=== PATIENT | female | born 1945 | race African-American/Black ===

== ENCOUNTER 2025-02-01 00:25 | Inpatient (IN) | payer MEDICARE, OTHER ==
[~2025-02-01] VITALS: Ht 162.6 cm; Wt 79.4 kg
[~2025-02-01 00:25] MED LIST: ASPI-1169 PO; ATOR20TA PO; CALC-903 PO; CHOL200074 PO; DOCU100C36 PO; ENAL20TA18 PO; GABA-532 PO; GALA12TA15 PO; MEMA10TA PO; MULT-754 PO
[2025-02-01 01:02] LABS: BASOPHILS # (AUTO) 0.1 K/uL (0.0-0.2); BASOPHILS % (AUTO) 0.9 % (0.0-2.0); EOSINOPHILS # (AUTO) 0.1 K/uL (0.0-0.7); EOSINOPHILS % (AUTO) 1.1 % (0.0-6.0); HEMATOCRIT 35 % (33-45); HEMOGLOBIN 11.4 g/dL (11.5-14.8); LYMPHOCYTES # (AUTO) 2.3 K/uL (0.8-4.8); LYMPHOCYTES % (AUTO) 30.7 % (20.0-44.0); MEAN CORPUSCULAR HEMOGLOBIN 28 PG (26.0-33.0); MEAN CORPUSCULAR HGB CONC 33 g/dl (31.0-36.0); MEAN CORPUSCULAR VOLUME 86 fL (82-100); MONOCYTES # (AUTO) 0.7 K/uL (0.1-1.30); MONOCYTES % (AUTO) 8.9 % (2.0-12.0); NEUTROPHILS # (AUTO) 4.4 K/uL (1.8-8.9); NEUTROPHILS % (AUTO) 58.4 % (43.0-81.0); PLATELET COUNT (AUTO) 196 K/uL (150-450); RED BLOOD CELL COUNT(AUTO) 4.06 MIL/uL (4.0-5.2); RED CELL DISTRIBUTION WIDTH 14.7 % (11.5-15.0); WHITE BLOOD COUNT (AUTO) 7.5 K/uL (4.3-11.0)
[2025-02-01 01:13] LABS: CALCIUM, SERUM 8.7 mg/dL (8.5-10.1); CARBON DIOXIDE 30 mmol/L (21-32); CHLORIDE 111 mmol/L (98-107); CREATININE 0.8 mg/dL (0.6-1.3); GLUCOSE 109 mg/dL (74-106); SODIUM SERUM 146 mmol/L (136-145); UREA NITROGEN, BLOOD 10 mg/dL (7-18)
[2025-02-01 01:27] LABS: ACETAMINOPHEN < 10 ug/ml (10-30); ALANINE AMINOTRANSFERASE 11 U/L (12-78); ALBUMIN 2.7 g/dL (3.4-5.0); ALKALINE PHOSPHATASE 77 U/L (46-116); ASPARTATE AMINOTRANSFERASE 12 U/L (15-37); BILIRUBIN,DIRECT 0.1 mg/dL (0.0-0.2); BILIRUBIN,TOTAL 0.2 mg/dL (0.2-1.0)
[2025-02-01 01:29] LABS: ALCOHOL, BLOOD < 3 mg/dL (0-10); SALICYLATE 0.8 mg/dL (2.8-20.0)
[2025-02-01 02:22] LABS: APPEARANCE,URINE CLEAR (CLEAR); BILIRUBIN,URINE NEGATIVE (NEGATIVE); BLOOD, URINE NEGATIVE Ery/uL (NEGATIVE); COLOR,URINE YELLOW (YELLOW); KETONES,URINE TRACE mg/dL (NEGATIVE); LEUKOCYTE ESTERASE ,URINE NEGATIVE (NEGATIVE); NITRITE, URINE NEGATIVE (NEGATIVE); PROTEIN,URINE TRACE mg/dl (NEGATIVE); UGLUCOSE NEGATIVE (NEGATIVE)
[2025-02-01 02:26] LABS: AMPHETAMINE, URINE NEGATIVE (NEGATIVE); BARBITURATE, URINE NEGATIVE (NEGATIVE); BENZODIAZEPINE, URINE NEGATIVE (NEGATIVE); CANNABINOID, URINE NEGATIVE (NEGATIVE); COCCAINE, URINE NEGATIVE (NEGATIVE); OPIATE, URINE NEGATIVE (NEGATIVE); PHENCYCLIDINE SCREEN,URINE NEGATIVE (NEGATIVE)
[2025-02-01] MEDS ORDERED: LEVE250T2 PO (03:25)
[2025-02-01] MEDS ORDERED: ERGO500040 PO (03:25)
[2025-02-01] MEDS ORDERED: FAMO20TA80 PO (03:25)
[2025-02-01] MEDS ORDERED: DIVA500T4 PO (03:25)
[2025-02-01] MEDS ORDERED: CHOL500062 PO (03:25)
[2025-02-01] MEDS ORDERED: OLAN2.5T3 PO (03:25)
[2025-02-01] MEDS ORDERED: DIVA125C2 PO (03:25)
[2025-02-01] MEDS: ENALAPRIL MALEATE (10 MG) 10 MG TABLET PO SCH (03:30)
[2025-02-01 03:37] LABS: ADD URINE CULTURE NO; BACTERIA,URINE None seen /HPF (None Seen); CALCIUM OXALATE CRYSTALS,UR Few /HPF (None Seen); RBC,URINE 0-2 /HPF (0-2); SQUAMOUS EPITHELIAL CELL,UR Rare /HPF (None Seen); WBC,URINE 0-2 /HPF (0-3)
[2025-02-01] MEDS: ENALAPRIL MALEATE (10 MG) 10 MG TABLET ONE (04:10)
[2025-02-01] MEDS: hydrALAZINE HCL 25 MG TABLET PO SCH (06:17)
[2025-02-01 06:25] VITALS: BP 185/90; TEMP 98.3; O2SAT 98
[2025-02-01] MEDS ORDERED: MAGNESIUM HYDROXIDE 30 ML UDC PO PRN (06:30)
[2025-02-01] MEDS ORDERED: MAG HYDROX/AL HYDROX/SIMETH 30 ML UDC PO PRN (06:30)
[2025-02-01] MEDS ORDERED: LORAZEPAM 0.5 MG TABLET PO ONE (06:30)
[2025-02-01] MEDS: BLOOD SUGAR DIAGNOSTIC 1 EACH STRIP IN ONE (06:50)
[2025-02-01 08:00] VITALS: BP 184/61; TEMP 98; O2SAT 98
[2025-02-01] MEDS: DOCUSATE SODIUM 100 MG CAPSULE PO SCH (12:25)
[2025-02-01] MEDS: LEVETIRACETAM (250 MG) 250 MG TABLET PO SCH (12:25)
[2025-02-01] MEDS: DIVALPROEX SODIUM 125 MG CAP.SPRINK PO SCH (12:26)
[2025-02-01] MEDS ORDERED: ERGOCALCIFEROL (VITAMIN D 2) 50,000 UNIT CAPSULE PO SCH ×2 (13:38→14:00)
[2025-02-01 16:00] VITALS: BP 159/94; TEMP 98.9; O2SAT 97
[2025-02-01] MEDS: OLANZAPINE 2.5 MG TABLET PO SCH (16:44)
[2025-02-01] MEDS: MEMANTINE HCL 5 MG TABLET PO SCH (16:44)
[2025-02-01 20:00] VITALS: BP 140/77; TEMP 98.1; O2SAT 100
[2025-02-01] MEDS: ATORVASTATIN 10 MG TABLET PO SCH (21:09)
[2025-02-01] MEDS ORDERED: ENALAPRIL MALEATE (10 MG) 10 MG TABLET PO SCH (22:00)
[2025-02-02 07:51] LABS: ALBUMIN 2.8 g/dL (3.4-5.0); BILIRUBIN,TOTAL 0.3 mg/dL (0.2-1.0); CALCIUM, SERUM 8.2 mg/dL (8.5-10.1); CREATININE 0.8 mg/dL (0.6-1.3); POTASSIUM 3.7 mmol/L (3.5-5.1); TOTAL PROTEIN, SERUM 6.1 g/dL (6.4-8.2)
[2025-02-02 07:52] LABS: CHOLESTEROL 162 mg/dL (<200); HDL CHOLESTEROL 75 mg/dL (40-60); LDL 71 mg/dL (0-99); TRIGLYCERIDES 58 mg/dL (30-150)
[2025-02-02 08:00] VITALS: BP 165/65; TEMP 97.8; O2SAT 96
[2025-02-02] MEDS: MULTIVITAMINS,THERAGRAN 1 UDTAB TABLET PO SCH (09:00)
[2025-02-02] MEDS: FAMOTIDINE (20 MG) 20 MG TABLET PO SCH (09:00)
[2025-02-02] MEDS: CHOLECALCIFEROL 1,000 UNIT TABLET (VIT D3) PO SCH (09:00)
[2025-02-02 16:00] VITALS: BP 166/60; TEMP 97.8; O2SAT 94
[2025-02-02] MEDS: CLONIDINE HCL 0.1 MG TABLET PO PRN (17:12)
[2025-02-02 20:00] VITALS: BP 118/47; TEMP 98.2; O2SAT 95
[2025-02-03 08:00] VITALS: BP 113/68; TEMP 97.8; O2SAT 98
[2025-02-03 16:00] VITALS: BP 119/50; TEMP 98; O2SAT 95
[2025-02-03 21:29] VITALS: BP 137/48; TEMP 98; O2SAT 96
[2025-02-04 08:00] VITALS: BP 159/68; TEMP 97.8; O2SAT 97
[2025-02-04 16:00] VITALS: BP 148/67; TEMP 97.8; O2SAT 98
[2025-02-04 20:35] VITALS: BP 148/51; TEMP 98.1; O2SAT 96
[2025-02-05 08:00] VITALS: BP 180/67; TEMP 98.1; O2SAT 99
[2025-02-05 15:49] VITALS: BP 178/54; TEMP 98; O2SAT 98
[2025-02-05 20:00] VITALS: BP 180/53; TEMP 98.7; O2SAT 100
[2025-02-06 07:25] LABS: BASOPHILS # (AUTO) 0.1 K/uL (0.0-0.2); BASOPHILS % (AUTO) 1.3 % (0.0-2.0); EOSINOPHILS # (AUTO) 0.1 K/uL (0.0-0.7); EOSINOPHILS % (AUTO) 1.4 % (0.0-6.0); HEMATOCRIT 39 % (33-45); MEAN CORPUSCULAR HEMOGLOBIN 29 PG (26.0-33.0); MEAN CORPUSCULAR HGB CONC 33 g/dl (31.0-36.0); MEAN CORPUSCULAR VOLUME 87 fL (82-100); MONOCYTES # (AUTO) 0.4 K/uL (0.1-1.30); MONOCYTES % (AUTO) 6.5 % (2.0-12.0); NEUTROPHILS # (AUTO) 3.4 K/uL (1.8-8.9); NEUTROPHILS % (AUTO) 56.8 % (43.0-81.0); PLATELET COUNT (AUTO) 219 K/uL (150-450); RED BLOOD CELL COUNT(AUTO) 4.54 MIL/uL (4.0-5.2); RED CELL DISTRIBUTION WIDTH 14.2 % (11.5-15.0); WHITE BLOOD COUNT (AUTO) 5.9 K/uL (4.3-11.0)
[2025-02-06 08:00] VITALS: BP 170/50; TEMP 97.7; O2SAT 96
[2025-02-06 08:08] LABS: ALBUMIN 2.8 g/dL (3.4-5.0); BILIRUBIN,TOTAL 0.2 mg/dL (0.2-1.0); CALCIUM, SERUM 8.5 mg/dL (8.5-10.1); CREATININE 0.8 mg/dL (0.6-1.3); POTASSIUM 3.9 mmol/L (3.5-5.1); TOTAL PROTEIN, SERUM 6.5 g/dL (6.4-8.2)
[2025-02-06 16:00] VITALS: BP 163/63; TEMP 98.3; O2SAT 99
[2025-02-06 20:19] VITALS: BP 160/56; TEMP 98.1; O2SAT 95
[2025-02-06 22:14] VITALS: BP 129/84; TEMP 97; O2SAT 97
[2025-02-07 08:00] VITALS: BP 160/67; TEMP 98.7; O2SAT 100
[2025-02-07 16:34] VITALS: BP 123/94; TEMP 98.7; O2SAT 99
[2025-02-07 20:00] VITALS: BP 173/61; TEMP 98.2; O2SAT 100
[2025-02-07 23:20] VITALS: BP 138/60; TEMP 98.2; O2SAT 96
[2025-02-08 08:00] VITALS: BP 168/77; TEMP 98.9; O2SAT 100
[2025-02-08 16:00] VITALS: BP 162/72; TEMP 97.7; O2SAT 97
[2025-02-08 20:00] VITALS: BP 145/68; TEMP 97.5; O2SAT 100
[2025-02-09 08:00] VITALS: BP 124/68; TEMP 97.7; O2SAT 97
[2025-02-09 16:00] VITALS: BP 155/71; TEMP 97.9; O2SAT 96
[2025-02-09 20:11] VITALS: BP 131/60; TEMP 97.8; O2SAT 97
[2025-02-10 08:00] VITALS: BP 165/60; TEMP 98.7; O2SAT 96
[2025-02-10 10:25] VITALS: BP 152/60
[2025-02-10 16:00] VITALS: BP 143/55; TEMP 97.7; O2SAT 95
[2025-02-10 20:25] VITALS: BP 137/68; TEMP 97.9; O2SAT 99
[2025-02-11 08:00] VITALS: BP 150/74; TEMP 97.8; O2SAT 98
[2025-02-11] MEDS: LORAZEPAM 0.5 MG TABLET PO PRN (10:21)
[2025-02-11 16:11] VITALS: BP 127/57; TEMP 97.8; O2SAT 96
[2025-02-11] MEDS: TEMAZEPAM 7.5 MG CAPSULE PO PRN (22:26)
[2025-02-11 23:07] VITALS: BP 127/74; TEMP 97.9; O2SAT 97
[2025-02-12 08:00] VITALS: BP 154/56; TEMP 97.7; O2SAT 99
[2025-02-12 15:21] VITALS: BP 152/47; TEMP 98.7; O2SAT 100
[2025-02-13] MEDS: ACETAMINOPHEN 325 MG TABLET PO PRN (07:01)
[2025-02-13 08:00] VITALS: BP 178/108; TEMP 97; O2SAT 97
[2025-02-13 16:00] VITALS: BP 136/92; TEMP 97.8; O2SAT 98
[2025-02-13 20:04] VITALS: BP_SYST 117; BP_SYST 144; BP_DIAS 67; BP_DIAS 71; TEMP 97.9; O2SAT 98
[2025-02-13 20:16] LABS: BASOPHILS # (AUTO) 0.1 K/uL (0.0-0.2); BASOPHILS % (AUTO) 1.6 % (0.0-2.0); EOSINOPHILS # (AUTO) 0.1 K/uL (0.0-0.7); EOSINOPHILS % (AUTO) 0.8 % (0.0-6.0); HEMATOCRIT 44 % (33-45); HEMOGLOBIN 14.2 g/dL (11.5-14.8); LYMPHOCYTES % (AUTO) 33.7 % (20.0-44.0); MEAN CORPUSCULAR HEMOGLOBIN 28 PG (26.0-33.0); MEAN CORPUSCULAR HGB CONC 32 g/dl (31.0-36.0); MEAN CORPUSCULAR VOLUME 87 fL (82-100); MONOCYTES # (AUTO) 0.3 K/uL (0.1-1.30); MONOCYTES % (AUTO) 5.6 % (2.0-12.0); NEUTROPHILS # (AUTO) 3.5 K/uL (1.8-8.9); NEUTROPHILS % (AUTO) 58.3 % (43.0-81.0); PLATELET COUNT (AUTO) 232 K/uL (150-450); RED CELL DISTRIBUTION WIDTH 14.5 % (11.5-15.0); WHITE BLOOD COUNT (AUTO) 6.1 K/uL (4.3-11.0)
[2025-02-13] MEDS: OLANZAPINE 2.5 MG TABLET PO SCH (21:11)
[2025-02-14 07:42] LABS: ALBUMIN 2.9 g/dL (3.4-5.0); BILIRUBIN,TOTAL 0.2 mg/dL (0.2-1.0); CALCIUM, SERUM 8.9 mg/dL (8.5-10.1); CREATININE 0.8 mg/dL (0.6-1.3); POTASSIUM 3.6 mmol/L (3.5-5.1); TOTAL PROTEIN, SERUM 6.5 g/dL (6.4-8.2)
[2025-02-14 08:00] VITALS: BP 173/87; TEMP 98.7; O2SAT 97
[2025-02-14 08:25] VITALS: BP 173/87
[2025-02-14] MEDS: OLANZAPINE 2.5 MG TABLET PO SCH (08:25)
== END 2025-02-14 15:45 | DRG 885 ==
LOC: ER 00:38 → GPS 03:10
PROVIDERS: ADMIT Psychiatry & Neurology Psychosomatic Medicine; ATTEND Nurse Practitioner Acute Care
DX: F25.0 Schizoaffective disorder, bipolar type (principal); F03.94 Unspecified dementia, unspecified severity, with anxiety; F03.918 Unspecified dementia, unspecified severity, with other behavioral disturbance; D68.59 Other primary thrombophilia; E44.1 Mild protein-calorie malnutrition; F03.92 Unspecified dementia, unspecified severity, with psychotic disturbance; I10 Essential (primary) hypertension; Z86.73 Personal history of transient ischemic attack (TIA), and cerebral infarction without residual deficits; Z79.899 Other long term (current) drug therapy; E11.9 Type 2 diabetes mellitus without complications; F32.9 Major depressive disorder, single episode, unspecified; Z88.0 Allergy status to penicillin; G89.4 Chronic pain syndrome; Z79.82 Long term (current) use of aspirin; E88.09 Other disorders of plasma-protein metabolism, not elsewhere classified; E66.01 Morbid (severe) obesity due to excess calories; Z68.30 Body mass index [BMI] 30.0-30.9, adult; G40.909 Epilepsy, unspecified, not intractable, without status epilepticus; E78.5 Hyperlipidemia, unspecified; F94.0 Selective mutism; K59.00 Constipation, unspecified; F29 Unspecified psychosis not due to a substance or known physiological condition; Z73.6 Limitation of activities due to disability
CPT/HCPCS: 36415; 71045-TC; 80048-TC; 80053-TC; 80061-TC; 80076-TC; 80164-TC; 81001; 82962-TC; 85025-TC; 87081-TC; 97110-TC; 97116-TC; 97530-TC; G0480